=== PATIENT | female | born 1990 | race Caucasian/White ===

== ENCOUNTER 2019-02-10 18:16 | Observation (INO) ==
[2019-02-10 18:57] LABS: Basophils % 0.5 % (0.1-2.0); Eosinophils # 0.5 K/mm3 (0.0-0.4); Eosinophils % 5.8 % (0.1-12.0); Hematocrit 34.9 % (37.0-47.0); Hemoglobin 10.8 g/dL (12.2-16.2); Lymphocytes # 2.1 K/mm3 (0.7-4.5); Lymphocytes % 24.2 % (10-50); Mean Corpuscular HGB Conc 31.1 g/dL (31.8-35.4); Mean Corpuscular Volume 83.1 fl (81-99); Mean Platelet Volume 7.7 fl (7.4-10.4); Monocytes # 0.4 K/mm3 (0.1-1.0); Monocytes % 4.5 % (1.7-9.3); Neutrophils # 5.6 K/mm3 (1.8-7.8); Neutrophils % 65.1 % (37.0-80.0); Platelet Count 422 K/mm3 (142-424); Red Cell Distribution Width 13.6 % (11.5-17.5); White Blood Count 8.5 K/mm3 (4.8-10.8)
--- NOTE | 2019-02-10 18:57 | Emergency Department Note ---
ED Disposition Clinical Impression: Abscess of right thigh Disposition: Admitted as Observation Condition on Discharge: Fair Instructions: DI for Laceration Repair Additional Instructions: Will be admitted by Dr. Moses with clindamycin and vancomycin and a surgical consult to Dr. Solano Referrals: Laney Garcia [Primary Care Provider] - Time of Disposition: 19:04 - Critical Care Critical Care Time: No Attestation: On 02/10/19, the high probability of a clinically significant, sudden or life threatening deterioration of the following system(s) required my full and direct attention, intervention and personal management. The time I documented below is in addition to time spent performing reported procedures but includes the following listed in this critical care notation. Medical Decision Making - Medical Records Medical records reviewed: Yes: I reviewed the patient's medical records. - Bonifacio Inquiry Pt receiving controlled substance: No Bonifacio was queried for this patient: No Vital Signs: 02/10/19 18:30 Temperature 99 F Temperature Source Oral Pulse Rate [Left Radial] 110 H Respiratory Rate 18 Blood Pressure [Right Arm] 154/98 H Blood Pressure Mean [Right Arm] 116 Blood Pressure Position [Right Arm] Sitting 02 Sat by Pulse Oximetry 98 Oxygen Delivery Method Room Air - Lab Data Lab results reviewed: Yes: I reviewed the patient's lab results. Wound/Laceration HPI - General Chief Complaint: Wound/Laceration Stated Complaint: cyst on inner right thigh Time Seen by Provider: 02/10/19 18:49 Mode of Arrival: Ambulatory Limitations: No Limitations Description of Symptoms (Recalled from ER Triage Doc. by RN): TO ED PER PVT CAR WITH C/O ABSCESS TO RT INNER THIGH X SEVERAL DAYS, SEEN IN ED FRIDAY FOR SAME GIVEN ANTIBIOTICS BUT STATES GETTING WORSE. - History of Present Illness HPI narrative: Patient is a 28-year-old white female who comes in with a large abscess on the right inner thigh that is been there since Friday she was seen in the emergency room on Friday and started on some clindamycin p.o. but comes back now because the abscess has gotten much bigger Onset (ago): day(s) Location: other (Right upper thigh) - Related Data Home Medications Medication Instructions Recorded Confirmed Metformin HCl [Metformin HCl ER] 500 mg PO HS 10/19/18 10/19/18 Previous Rx's Medication Instructions Recorded Levothyroxine Sodium [Synthroid 150 mcg PO DAILY #30 tab 10/19/18 150mcg (0.15mg) tablet] Clindamycin HCl [Clindamycin HCl 300 mg PO Q6 7 Days #28 cap 02/07/19 300mg Cap] Allergies Allergy/AdvReac Type Severity Reaction Status Date / Time No Known Allergies Allergy Verified 10/19/18 20:18 [facility] History - Hepatitis A Screen Drug use history?: No High risk sexual behaviors?: No History of sexually transmitted infection?: No Currently employed?: No Childcare worker?: No Do you have indoor plumbing?: Yes Do you have electricity?: Yes Attestation statement:: This patient has been screened for Hepatitis A risk factors. I have reviewed the patient's past medical history: Yes Medical History: Reports:: Cancer (thyroid ca), Diabetes Mellitus Type 2 Denies:: MRSA Amputation: No - Social History Alcohol Intake: never Occupational Status: unemployed Housing: house ROS Obtained: Yes All systems reviewed & no additional complaints - Constitutional Constitutional: Reports system reviewed and no additional complaints, except as docu - Integumentary/Breasts Skin/Breast: Reports system reviewed and no additional complaints, except as docu, Reports as per HPI Physical Exam - General General appearance: alert, in no apparent distress - Head Head exam: atraumatic - Eye Eye exam: Present: normal appearance - ENT ENT exam: Present: normal exam - Neck Neck exam: Present: normal inspection - Chest Chest inspection: Present: normal inspection - Respiratory Respiratory exam: Present: normal lung sounds bilaterally - Cardiovascular Cardiovascular exam: Present: regular rate, normal rhythm - Abdominal Exam Abdominal exam: Present: soft - Extremities Exam Extremities exam: Present: other (Large abscess on right upper thigh that measures approximately 5 cm in width and about 12 to 13 cm in length) - Neurological Exam Neurological exam: Present: alert, oriented X3 - Psychiatric Psychiatric exam: Present: normal affect, normal mood
[2019-02-10 19:06] LABS: Albumin Level 2.8 gm/dL (3.4-5.0); Albumin/Globulin Ratio 0.5 (1.1-1.8); Anion Gap 12.1 mEq/L (5-15); Bilirubin,Total 0.2 mg/dL (0.2-1.0); Calcium 9.1 mg/dL (8.5-10.1); Globulin 5.1 gm/dl (1.3-3.2); Total Protein,Serum 7.9 gm/dL (6.4-8.2)
[2019-02-10 19:22] LABS: Microscopic, Urine URINE MICROSCOPIC (MICROSCOPIC)
[2019-02-10 19:24] LABS: Appearance,Urine CLEAR (Clear); Blood, Urine Negative (Negative); Color,Urine YELLOW (Yellow); Glucose,Urine (UA) Negative (Negative); Ketones,Urine Negative (Negative); Leukocyte Esterase,Urine Negative (Negative); Protein,Urine TRACE (Negative); Specific Gravity, Urine >= 1.030 (1.005-1.030)
[2019-02-10 19:37] LABS: Bacteria,Urine 2+ /lpf; Bilirubin,Urine Negative (Negative); Mucus,Urine Trace /lpf; Squamous Epithelial Cell,Urine 20-50 #/hpf (0-5)
[2019-02-11 06:29] LABS: INR 0.92 (0.9-1.1); Prothrombin Time 9.6 seconds (9.4-11.8)
[2019-02-11 06:35] LABS: Phosphorous 4.2 mg/dL (2.4-4.9)
--- NOTE | 2019-02-11 07:10 | Consult Report ---
*Admission Date: 02/11/19 *Reason for consult:: Abscess *History of present illness: Patient is a 28-year-old nondiabetic female from [place]. She states that she had developed some redness and swelling consistent with a skin abscess in the right medial proximal thigh about 6 days ago. She had presented to the emergency department 4 days ago and was started on oral clindamycin. The area had increased in size and swelling with progressive redness and she presented to the emergency department yesterday evening. It was felt that this required intravenous antibiotics and surgical intervention and she was admitted for inpatient management. Review of Systems - Review of Systems Review of systems:: pertinent systems reviewed and negative unless documented below [facility] History I have reviewed the patient's past medical history: Yes Medical History: Reports:: Cancer (thyroid ca), Diabetes Mellitus Type 2 Denies:: MRSA *Have you ever received a pneumonia vaccine?: No *Have you received a flu vaccine this season?: No (does not want) Other Medical History: Reports: Hypothyroidism, Radiation Therapy, Thyroid Disease (hx of cancer) Laterality Cases: Bilateral: Other Other Surgeries: Yes: , Thyroidectomy, Other (bilateral tube removal) Amputation: No Fractures: No - *Social History Educational Level: Attended High School Smoking Status: Never smoker Alcohol Intake: never *Occupational Status:: unemployed Housing: house Household Members: significant other, family, children *Travel in the last 8 weeks: None Family Hx:: Other Meds Home Medications Medication Instructions Recorded Confirmed Type Levothyroxine Sodium [Synthroid 150 mcg PO DAILY #30 tab 10/19/18 02/10/19 Rx 150mcg (0.15mg) tablet] Metformin HCl [Metformin HCl ER] 500 mg PO HS 10/19/18 02/10/19 History Clindamycin HCl [Clindamycin HCl 300 mg PO Q6 7 Days #28 cap 02/07/19 02/10/19 Rx 300mg Cap] Allergies Allergy/AdvReac Type Severity Reaction Status Date / Time No Known Allergies Allergy Verified 10/19/18 20:18 Exam Vital signs and Labs for Last 24 Hours: Temp Pulse Resp BP Pulse Ox 97.9 F 72 15 109/50 L 97 02/11/19 04:00 02/11/19 04:00 02/11/19 04:00 02/11/19 04:00 02/11/19 04:00 Laboratory Results - last 24 hr 02/10/19 18:46: WBC 8.5, RBC 4.20, Hgb 10.8 L, Hct 34.9 L, MCV 83.1, MCH 25.8 L, MCHC 31.1 L, RDW 13.6, Plt Count 422, MPV 7.7, Neut % (Auto) 65.1, Lymph % (Auto) 24.2, [place] % (Auto) 4.5, Eos % (Auto) 5.8, Baso % (Auto) 0.5, Neut # (Auto) 5.6, Lymph # (Auto) 2.1, [place] # (Auto) 0.4, Eos # (Auto) 0.5 H, Baso # (Auto) 0.0 02/10/19 18:46: Sodium 139, Potassium 3.1 L, Chloride 103, Carbon Dioxide 27, Anion Gap 12.1, BUN 14, Creatinine 0.69, Estimated Creat Clear 145, Estimated GFR 100, Est GFR ( Amer) 121, Glucose 97, Calcium 9.1, Total Bilirubin 0.2, AST 7 L, ALT 13, Alkaline Phosphatase 73, Total Protein 7.9, Albumin 2.8 L, Globulin 5.1 H, Albumin/Globulin Ratio 0.5 L 02/10/19 19:06: Urine Color Yellow, Urine Appearance Clear, Urine pH 6.0, Ur Specific [place] >= 1.030, Urine Protein Trace, Urine Glucose (UA) Negative, Urine Ketones Negative, Urine Blood Negative, Urine Nitrate Negative, Urine Bilirubin Negative, Urine Urobilinogen 1.0, Ur Leukocyte Esterase Negative, Urine RBC 3-5, Urine WBC 5-10, Ur Squamous Epith Cells 20-50, Urine Bacteria 2+, Urine Mucus Trace 02/10/19 20:59: POC Glucose 72 02/11/19 05:46: POC Glucose 83 02/11/19 06:00: PT 9.6, INR 0.92 02/11/19 06:00: Phosphorus 4.2, Magnesium 1.7 I & O for Last 24 hours: Intake & Output 02/08/19 02/09/19 02/10/19 02/11/19 11:59 11:59 11:59 11:59 Intake Total 2741 / 2741 Output Total 200 / 200 Balance 2541 / 2541 Weight 201 lb 2 oz - *Routine HEENT Exam Head: Present: normocephalic Eye: Present: EOMI, PERRL ENT: Present: mucous membranes moist - *Routine Neck Exam Present: supple. Absent: lymphadenopathy - *Routine Respiratory Exam Present: CTA bilaterally - *Routine Cardiovascular Exam Present: RRR - *Routine Abdominal Exam Present: soft, normoactive bowel sounds. Absent: tenderness - *Routine Extremities Exam Absent: cyanosis, clubbing, edema - *Routine Skin Exam Present: warm. Absent: rash Comments: She has an area of swelling with skin edema and erythema in the right medial proximal thigh. Extent is approximately 12 cm. Its tender. There are couple of punctate areas consistent with folliculitis more posterior medially which may be the origin. There is no fluctuance but the area is firm and indurated with erythema. - *Routine Neurological Exam Present: alert, oriented X3 - Detailed Eye Exam Eyelids: Left normal inspection Results - Labs 02/10/19 18:46 02/10/19 18:46 Laboratory Results - last 24 hr 02/10/19 18:46: WBC 8.5, RBC 4.20, Hgb 10.8 L, Hct 34.9 L, MCV 83.1, MCH 25.8 L, MCHC 31.1 L, RDW 13.6, Plt Count 422, MPV 7.7, Neut % (Auto) 65.1, Lymph % (Auto) 24.2, [place] % (Auto) 4.5, Eos % (Auto) 5.8, Baso % (Auto) 0.5, Neut # (Auto) 5.6, Lymph # (Auto) 2.1, [place] # (Auto) 0.4, Eos # (Auto) 0.5 H, Baso # (Auto) 0.0 02/10/19 18:46: Sodium 139, Potassium 3.1 L, Chloride 103, Carbon Dioxide 27, Anion Gap 12.1, BUN 14, Creatinine 0.69, Estimated Creat Clear 145, Estimated GFR 100, Est GFR ( Amer) 121, Glucose 97, Calcium 9.1, Total Bilirubin 0.2, AST 7 L, ALT 13, Alkaline Phosphatase 73, Total Protein 7.9, Albumin 2.8 L, Globulin 5.1 H, Albumin/Globulin Ratio 0.5 L 02/10/19 19:06: Urine Color Yellow, Urine Appearance Clear, Urine pH 6.0, Ur Specific [place] >= 1.030, Urine Protein Trace, Urine Glucose (UA) Negative, Urine Ketones Negative, Urine Blood Negative, Urine Nitrate Negative, Urine Bilirubin Negative, Urine Urobilinogen 1.0, Ur Leukocyte Esterase Negative, Urine RBC 3-5, Urine WBC 5-10, Ur Squamous Epith Cells 20-50, Urine Bacteria 2+, Urine Mucus Trace 02/10/19 20:59: POC Glucose 72 02/11/19 05:46: POC Glucose 83 02/11/19 06:00: PT 9.6, INR 0.92 02/11/19 06:00: Phosphorus 4.2, Magnesium 1.7 Assessment and Plan - Assessment and plan all Dx Assessment and Plan for all problems:: Soft tissue infection with clinical abscess of the right medial proximal thigh. Plan for incision and drainage with debridement.
--- NOTE | 2019-02-11 07:22 | Pharmacy Consult Notes ---
[facility] Pharmacy VTE Monitoring - Patient Demographics Admission date: 02/10/19 Report Date: 02/11/19 Time: 07:22 Allergies/Adverse Reactions: Patient Allergies No Known Allergies Allergy (Verified 10/19/18 20:18) Height: 1.52 m Weight: 91.229 kg Patient Problems: Current Active Problems Abscess of right thigh (Acute) - VTE Risk Labs: VTE Related Lab Results Hgb 10.8 g/dL (12.2-16.2) L 02/10/19 18:46 Hct 34.9 % (37.0-47.0) L 02/10/19 18:46 Plt Count 422 K/mm3 (142-424) 02/10/19 18:46 PT 9.6 seconds (9.4-11.8) 02/11/19 06:00 INR 0.92 (0.9-1.1) 02/11/19 06:00 BUN 14 mg/dL (7-18) 02/10/19 18:46 Creatinine 0.69 mg/dL (0.55-1.02) 02/10/19 18:46 Estimated Creat Clear 145 mL/min (50-200) 02/10/19 18:46 Was VTE Risk Assessment Performed: Yes VTE Score: 1 VTE Risk Level: Very Low Risk - Prophylaxis VTE Prophylaxis Ordered?: Yes Types of VTE Prophylaxis: TEDS Knee High Location of Applied Device: Bilateral Lower Extremeties - VTE Diagnosis Confirmed Treatment or plan recommended: Continue Current Treatment
--- NOTE | 2019-02-11 08:06 | Pharmacy Consult Notes ---
- Pharmacy Consult Date: 02/11/19 Time: 08:05 Referring provider: DR. LUJAN Reason for Consult:: VANCOMYCIN DOSING Allergies and ADEs:: Allergies Allergy/AdvReac Type Severity Reaction Status Date / Time No Known Allergies Allergy Verified 10/19/18 20:18 Home Medications:: Home Medications Medication Instructions Recorded Confirmed Type Levothyroxine Sodium [Synthroid 150 mcg PO DAILY #30 tab 10/19/18 02/10/19 Rx 150mcg (0.15mg) tablet] Clindamycin HCl [Clindamycin HCl 300 mg PO Q6 7 Days #28 cap 02/07/19 02/10/19 Rx 300mg Cap] Fluoxetine HCl [Prozac 20mg 20 mg PO HS 02/11/19 02/11/19 History Capsule] hydrOXYzine HCl [Hydroxyzine HCl] 50 mg PO BIDP PRN 02/11/19 02/11/19 History Height: 1.52 m Weight: 91.229 kg Laboratory Results:: Laboratory Results - last 24 hr 02/10/19 18:46: WBC 8.5, RBC 4.20, Hgb 10.8 L, Hct 34.9 L, MCV 83.1, MCH 25.8 L, MCHC 31.1 L, RDW 13.6, Plt Count 422, MPV 7.7, Neut % (Auto) 65.1, Lymph % (Auto) 24.2, [place] % (Auto) 4.5, Eos % (Auto) 5.8, Baso % (Auto) 0.5, Neut # (Auto) 5.6, Lymph # (Auto) 2.1, [place] # (Auto) 0.4, Eos # (Auto) 0.5 H, Baso # (Auto) 0.0 02/10/19 18:46: Sodium 139, Potassium 3.1 L, Chloride 103, Carbon Dioxide 27, Anion Gap 12.1, BUN 14, Creatinine 0.69, Estimated Creat Clear 145, Estimated GFR 100, Est GFR ( Amer) 121, Glucose 97, Calcium 9.1, Total Bilirubin 0.2, AST 7 L, ALT 13, Alkaline Phosphatase 73, Total Protein 7.9, Albumin 2.8 L, Globulin 5.1 H, Albumin/Globulin Ratio 0.5 L 02/10/19 19:06: Urine Color Yellow, Urine Appearance Clear, Urine pH 6.0, Ur Specific [place] >= 1.030, Urine Protein Trace, Urine Glucose (UA) Negative, Urine Ketones Negative, Urine Blood Negative, Urine Nitrate Negative, Urine Bilirubin Negative, Urine Urobilinogen 1.0, Ur Leukocyte Esterase Negative, Urine RBC 3-5, Urine WBC 5-10, Ur Squamous Epith Cells 20-50, Urine Bacteria 2+, Urine Mucus Trace 02/10/19 20:59: POC Glucose 72 02/11/19 05:46: POC Glucose 83 02/11/19 06:00: PT 9.6, INR 0.92 02/11/19 06:00: Phosphorus 4.2, Magnesium 1.7 02/11/19 07:15: Urine HCG, Qual Negative Medical History: Reports:: Cancer (thyroid ca), Diabetes Mellitus Type 2 Denies:: MRSA Assessment and Plan - Assessment and plan all Dx Assessment and Plan for all problems:: BASED ON PATIENT FACTORS, RECOMMEND VANCOMYCIN 1500 MG IV Q12H. WILL OBTAIN VANCOMYCIN TROUGH LEVEL AND PATIENT FACTORS TOMORROW PRIOR TO 4TH DOSE. PHARMACY WILL FOLLOW DAILY AND ADJUST APPROPRIATE.
--- NOTE | 2019-02-11 08:16 | Operative Note ---
Date of procedure: 02/11/19 Pre-op Diagnosis:: Soft tissue infection of right medial proximal thigh Post-op Diagnosis:: Same Procedure performed:: Incision and drainage of complex deep right thigh abscess with debridement of subcutaneous tissue Surgeon:: Paul Solano MD VIOLIN MECHANIC:: Willie Casanova Anesthesia: LMA Estimated blood loss (mL): 15 Clinical Note:: Patient is a 28-year-old nondiabetic female from [place]. She states that she had developed some redness and swelling consistent with a skin abscess in the right medial proximal thigh about 6 days ago. She had presented to the emergency department 4 days ago and was started on oral clindamycin. The area had increased in size and swelling with progressive redness and she presented to the emergency department yesterday evening. It was felt that this required intravenous antibiotics and surgical intervention and she was admitted for inpatient management. Operative findings:: Deep subcutaneous abscess with minimal necrosis of subcutaneous tissues. Wound size measured approximately 10 cm x 4 cm with approximately 5 cm in depth. There is 5 cm tunneling anteriorly and posteriorly. Operative note:: Patient was taken to the operating room. She was positioned in a supine position. General anesthesia was induced via LMA. She was positioned in somewhat of a frog-leg position to allow access to the area of the soft tissue infection. The area was prepped and draped in the standard surgical fashion. There was more intense induration with some more prominent skin changes somewhat posteriorly. 18-gauge needle was inserted with syringe while aspirating. Bloody purulent material was aspirated. This was then sent for culture. At this site a limited incision was made. Thick bloody pus exuded from the wound. This was suctioned free. The wound was then probed and there was significant abscess pocket. The overlying skin over the abscess pocket was incised with electrocautery so as to unroofed the subcutaneous abscess. There is minimal necrosis of the subcutaneous tissues which was easily bluntly debrided. The wound was open for approximately 10 cm. However, there was tunneling for 5 cm anteriorly and posteriorly. Once the purulence and necrotic tissue was fully evacuated wound was thoroughly irrigated with approximately 3 L of pulsatile saline irrigation using the Pulsavac device. She did have some persistent induration adjacent to the incision but no evidence of any undrained purulence or necrosis. Hemostasis was achieved with electrocautery. Local anesthetic was infiltrated. The wound was packed with a moistened saline Kerlix gauze and covered with clean dry sterile dressing. Condition: stable Disposition: PACU Specimens:: Cultures Complications:: None immediately apparent
--- NOTE | 2019-02-11 08:21 | Progress Note ---
[facility] Anesthesia Record Part I Intake, IV Amount: 500 Estimated blood loss (mL): 20 Urine output (mL): 0 Blood Products used (#): none Blood Pressure: 138/83 SaO2: 96 Pulse Rate: 98 Respiratory Rate: 15 Temperature: 97.5 F Patient is:: Awake, Drowsy, Stable Stable to PACU at:: 08:16
--- NOTE | 2019-02-11 08:21 | Progress Note ---
[facility] Anesthesia Checklist - Patient Identification Patient Identification: Arm Band, Verbal (Name & ) - Structural Data Admitted From: Home Planned Operative Procedure/s: Right thich abscess I&D Consent for Planned Operative Procedure(s) Verified: Yes Verified Documents: Surgical Consent, History and Physical - NPO Status Verified Time NPO: 00:00 - Chart Verification Results Verified: CBC, BMP, PT, PTT, INR, HCG - Additional verifications Patient : No Anesthesia Reactions: No - Airway Assessment C-Spine Mobility Assessed: Yes TMJ Mobility Assessed: Yes Dentition: Good Dentition - Neurological Assessment Level of Consciousness: Awake, Alert, Appropriate, Follows Commands Hx Seizures: No Numbness or tingling in extremities: No - Anesthesia Plan Anesthesia Risk discussed: Yes Anesthesia Plan: Verified ASA Class: III (Emergent) Anesthesia Type: General [facility] History I have reviewed the patient's past medical history: Yes Medical History: Reports:: Cancer (thyroid ca), Depression, Diabetes Mellitus Type 2 Denies:: MRSA *Have you ever received a pneumonia vaccine?: No *Have you received a flu vaccine this season?: No (does not want) Other Medical History: Reports: Hypothyroidism, Radiation Therapy, Thyroid Dise ase (hx of cancer) Comment:: morbid obesity Anesthesia experience/problems:: None Laterality Cases: Bilateral: Other Other Surgeries: Yes: , Thyroidectomy, Other (bilateral tube removal) Amputation: No Fractures: No - *Social History Educational Level: Attended High School Smoking Status: Never smoker Alcohol Intake: never Substance Use Type: denies use *Occupational Status:: unemployed Housing: house Household Members: significant other, family, children *Travel in the last 8 weeks: None Family Hx:: Other
--- NOTE | 2019-02-11 08:22 | Progress Note ---
[facility] Anesthesia Record Part II Discharge Time: 08:46 Destination: Medical Surgical Department PACU nurse assessment reviewed?: Yes Patient Condition:: Good Anesthesia Complications:: None Swallowing reflex intact?: Yes Cyanosis?: No
--- NOTE | 2019-02-11 13:42 | History & Physical Report ---
*Admission Date: 02/10/19 *Chief complaint: Abscess in groin *History of present illness: Ms. Aguayo is a pleasant 28-year-old female from [place], [place] who presents with failure of outpatient treatment for a right groin abscess. She states that she had developed some redness and swelling consistent with a skin abscess in the right medial proximal thigh about 6 days ago. She says it started like a small pimple similar to ingrown hairs that she has had before. She went to the ER earlier this week and was started on oral clindamycin. The area unfortunately increased in size, had worsening swelling and pain. Came to the ER due to worsening symptoms. She was admitted to medicine for further management with IV antibiotics and surgery was consulted. I&D was performed this morning. On interview, patient was tired but in minimal discomfort. Had no other complaints on exam. Denied chest pain, shortness of breath, history of recurring skin infections, diarrhea, nausea, vomiting. [facility] History I have reviewed the patient's past medical history: Yes Medical History: Reports:: Cancer (thyroid ca), Depression, Diabetes Mellitus Type 2 Denies:: MRSA, Seizures *Have you ever received a pneumonia vaccine?: No *Have you received a flu vaccine this season?: No (does not want) Other Medical History: Reports: Hypothyroidism, Radiation Therapy, Thyroid Disease (hx of cancer) Anesthesia experience/problems:: None Laterality Cases: Bilateral: Other Other Surgeries: Yes: , Thyroidectomy, Other (bilateral tube removal) Amputation: No Fractures: No - *Social History Educational Level: Attended High School Smoking Status: Never smoker Alcohol Intake: never Substance Use Type: denies use *Occupational Status:: unemployed Housing: house Household Members: significant other, family, children *Travel in the last 8 weeks: None - Psychiatric History Pschychiatric History:: Reports:: Depression Family Hx:: Other Review of Systems - Review of Systems Review of systems:: pertinent systems reviewed and negative unless documented below Meds Home Medications Medication Instructions Recorded Confirmed Type Levothyroxine Sodium [Synthroid 150 mcg PO DAILY #30 tab 10/19/18 02/10/19 Rx 150mcg (0.15mg) tablet] Clindamycin HCl [Clindamycin HCl 300 mg PO Q6 7 Days #28 cap 02/07/19 02/10/19 Rx 300mg Cap] Fluoxetine HCl [Prozac 20mg 20 mg PO HS 02/11/19 02/11/19 History Capsule] hydrOXYzine HCl [Hydroxyzine HCl] 50 mg PO BIDP PRN 02/11/19 02/11/19 History Allergies Allergy/AdvReac Type Severity Reaction Status Date / Time No Known Allergies Allergy Verified 10/19/18 20:18 Exam Vital signs and Labs for Last 24 Hours: Temp Pulse Resp BP Pulse Ox 97.8 F 70 16 118/73 93 L 02/11/19 11:45 02/11/19 11:45 02/11/19 10:45 02/11/19 11:45 02/11/19 11:45 Laboratory Results - last 24 hr 02/10/19 18:46: WBC 8.5, RBC 4.20, Hgb 10.8 L, Hct 34.9 L, MCV 83.1, MCH 25.8 L, MCHC 31.1 L, RDW 13.6, Plt Count 422, MPV 7.7, Neut % (Auto) 65.1, Lymph % (Auto) 24.2, [place] % (Auto) 4.5, Eos % (Auto) 5.8, Baso % (Auto) 0.5, Neut # (Auto) 5.6, Lymph # (Auto) 2.1, [place] # (Auto) 0.4, Eos # (Auto) 0.5 H, Baso # (Auto) 0.0 02/10/19 18:46: Sodium 139, Potassium 3.1 L, Chloride 103, Carbon Dioxide 27, Anion Gap 12.1, BUN 14, Creatinine 0.69, Estimated Creat Clear 145, Estimated GFR 100, Est GFR ( Amer) 121, Glucose 97, Calcium 9.1, Total Bilirubin 0.2, AST 7 L, ALT 13, Alkaline Phosphatase 73, Total Protein 7.9, Albumin 2.8 L, Globulin 5.1 H, Albumin/Globulin Ratio 0.5 L 02/10/19 19:06: Urine Color Yellow, Urine Appearance Clear, Urine pH 6.0, Ur Specific [place] >= 1.030, Urine Protein Trace, Urine Glucose (UA) Negative, Urine Ketones Negative, Urine Blood Negative, Urine Nitrate Negative, Urine Bilirubin Negative, Urine Urobilinogen 1.0, Ur Leukocyte Esterase Negative, Urine RBC 3-5, Urine WBC 5-10, Ur Squamous Epith Cells 20-50, Urine Bacteria 2+, Urine Mucus Trace 02/10/19 20:59: POC Glucose 72 02/11/19 05:46: POC Glucose 83 02/11/19 06:00: PT 9.6, INR 0.92 02/11/19 06:00: Phosphorus 4.2, Magnesium 1.7 02/11/19 07:15: Urine HCG, Qual Negative 02/11/19 11:41: POC Glucose 127 H I & O for Last 24 hours: Intake & Output 02/08/19 02/09/19 02/10/19 02/11/19 23:59 23:59 23:59 23:59 Intake Total 1100 / 1220 2761 / 2761 Output Total 200 / 200 Balance 1100 / 1220 2561 / 2561 Weight 89.471 kg 91.229 kg - Constitutional no acute distress, obese - *Routine HEENT Exam Head: Present: normocephalic Eye: Present: EOMI, PERRL ENT: Present: mucous membranes moist - *Routine Neck Exam Present: supple. Absent: lymphadenopathy - *Routine Respiratory Exam Present: CTA bilaterally - *Routine Cardiovascular Exam Present: RRR - *Routine Abdominal Exam Present: soft, normoactive bowel sounds. Absent: tenderness - *Routine Exam Patient deferred: groin exam (I&D of right groin examined with surrounding erythema and induration, mild tenderness to palpation. Clean packing in place. No bleeding.) - *Routine Extremities Exam Absent: cyanosis, clubbing, edema - *Routine Skin Exam Present: warm. Absent: rash - *Routine Neurological Exam Present: alert, oriented X3 Assessment and Plan (1) Abscess of right thigh Current visit: Yes Status: Acute Category: Medical Code(s): L02.415 - Cutaneous abscess of right lower limb Status post I&D. Continue broad-spectrum IV antibiotics. Cultures pending. Assess for response over the coming 24 to 48 hours. If improves, will transition to oral therapy to complete 10 to 14 days of antibiotics. Wound dressings per nursing (2) Hypothyroidism Current visit: No Status: Chronic Qualifiers: Hypothyroidism type: postoperative Qualified Code(s): E89.0 - Postproce dural hypothyroidism Category: Medical Code(s): E03.9 - Hypothyroidism, unspecified Continue home levothyroxine (3) Hypokalemia Current visit: Yes Status: Acute Category: Medical Code(s): E87.6 - Hypokalemia Place as needed. Repeat labs in the morning
--- NOTE | 2019-02-12 08:01 | Progress Note ---
Subjective Narrative: Patient had nausea since yesterday with some vomiting this morning. Had pain with dressing change this morning. Exam Vital signs and Labs for Last 24 Hours: Temp Pulse Resp BP Pulse Ox 98.6 F 87 15 137/71 96 02/12/19 05:33 02/12/19 05:33 02/12/19 05:33 02/12/19 05:33 02/12/19 05:33 Laboratory Results - last 24 hr 02/11/19 11:41: POC Glucose 127 H I & O for Last 24 hours: Intake & Output 02/09/19 02/10/19 02/11/19 02/12/19 11:59 11:59 11:59 11:59 Intake Total 3241 / 3241 2215 / 2215 Output Total 200 / 200 775 / 775 Balance 3041 / 3041 1440 / 1440 Weight 201 lb 2 oz 203 lb 6 oz Microbiology Reports for the Last 24 Hours: Microbiology 02/10/19 19:06 Urine,Clean Catch Urine Culture - Preliminary NO GROWTH AFTER 24 HOURS 02/11/19 07:49 Thigh - Right Gram Stain - Final - *Routine Skin Exam Comments: Cellulitis markedly improved. Still with some induration. Progress Note: A&P (1) Abscess of right thigh Status: Acute Current Visit: Yes (2) Hypothyroidism Status: Chronic Current Visit: No (3) Hypokalemia Status: Acute Current Visit: Yes Assessment and Plan for All Diagnoses:: Cultures pending, gram stain reveals gram positive cocci. Continue wound care.
--- NOTE | 2019-02-12 08:20 | Progress Note ---
Internal Medicine - PN: Subj *Date: 02/12/19 *Time: 08:16 Interval history: Patient had a rough time overnight with dressing change. Had extreme pain. Required additional pain meds consisting of Dilaudid x1. Tolerating intermittent p.o. intake however had some nausea and vomiting this morning. Hemodynamically stable, afebrile. Ambulating independently. Denies any chest pain, shortness of breath, diarrhea. Does complain of nausea and vomiting. Exam Vital signs and Labs for Last 24 Hours: Temp Pulse Resp BP Pulse Ox 98.3 F 71 19 129/78 97 02/12/19 08:00 02/12/19 08:00 02/12/19 08:00 02/12/19 08:00 02/12/19 08:00 Laboratory Results - last 24 hr 02/11/19 11:41: POC Glucose 127 H I & O for Last 24 hours: Intake & Output 02/09/19 02/10/19 02/11/19 02/12/19 23:59 23:59 23:59 23:59 Intake Total 1100 / 1220 4081 / 4081 275 / 275 Output Total 575 / 575 400 / 400 Balance 1100 / 1220 3506 / 3506 -125 / -125 Weight 89.471 kg 91.229 kg 92.249 kg Microbiology Reports for the Last 24 Hours: Microbiology 02/10/19 19:06 Urine,Clean Catch Urine Culture - Preliminary NO GROWTH AFTER 24 HOURS 02/11/19 07:49 Thigh - Right Gram Stain - Final Narrative: - Constitutional no acute distress, obese - *Routine HEENT Exam Head: Present: normocephalic Eye: Present: EOMI, PERRL ENT: Present: mucous membranes moist - *Routine Neck Exam Present: supple. Absent: lymphadenopathy - *Routine Respiratory Exam Present: CTA bilaterally - *Routine Cardiovascular Exam Present: RRR - *Routine Abdominal Exam Present: soft, normoactive bowel sounds. Absent: tenderness - *Routine Extremities Exam Absent: cyanosis, clubbing, edema - *Routine Skin Exam Present: warm. Absent: rash - *Routine Neurological Exam Present: alert, oriented X3 Assessment and Plan (1) Abscess of right thigh Current visit: Yes Status: Acute Category: Medical Code(s): L02.415 - Cutaneous abscess of right lower limb (2) Hypothyroidism Current visit: No Status: Chronic Qualifiers: Hypothyroidism type: postoperative Qualified Code(s): E89.0 - Postprocedural hypothyroidism Category: Medical Code(s): E03.9 - Hypothyroidism, unspecified (3) Hypokalemia Current visit: Yes Status: Acute Category: Medical Code(s): E87.6 - Hypokalemia (4) Anxiety Current visit: Yes Status: Chronic Category: Medical Code(s): F41.9 - Anxiety disorder, unspecified Resume patient's home Prozac. Initiate Vistaril. (5) Class 2 obesity Current visit: Yes Status: Chronic Category: Medical Code(s): E66.9 - Obesity, unspecified Complicates all aspects of her care - Assessment and plan all Dx Assessment and Plan for all problems:: 1-year-old female with history of thyroid cancer status post ablation with abscess in right groin. Tolerating IV antibiotics. Remains afebrile. Continue with dressing changes twice daily. Will monitor for required pain treatment regimen over the next 24 hours in anticipation of going home over the weekend. De-escalate to oral antibiotics pending cultures and clinical response. Resumed home medications for chronic conditions. Continues to require inpatient management.
[2019-02-12 09:03] LABS: Anion Gap 10.2 mEq/L (5-15); Calcium 8.3 mg/dL (8.5-10.1)
--- NOTE | 2019-02-12 10:41 | Pharmacy Consult Notes ---
- Pharmacy Consult Date: 02/12/19 Time: 10:40 Referring provider: DR. LUJAN Reason for Consult:: VANCOMYCIN TROUGH LEVEL Allergies and ADEs:: Allergies Allergy/AdvReac Type Severity Reaction Status Date / Time No Known Allergies Allergy Verified 10/19/18 20:18 Home Medications:: Home Medications Medication Instructions Recorded Confirmed Type Levothyroxine Sodium [Synthroid 150 mcg PO DAILY #30 tab 10/19/18 02/10/19 Rx 150mcg (0.15mg) tablet] Clindamycin HCl [Clindamycin HCl 300 mg PO Q6 7 Days #28 cap 02/07/19 02/10/19 Rx 300mg Cap] Fluoxetine HCl [Prozac 20mg 20 mg PO HS 02/11/19 02/11/19 History Capsule] hydrOXYzine HCl [Hydroxyzine HCl] 50 mg PO BIDP PRN 02/11/19 02/11/19 History Height: 1.52 m Weight: 92.249 kg Laboratory Results:: Laboratory Results - last 24 hr 02/11/19 11:41: POC Glucose 127 H 02/12/19 08:40: Vancomycin Trough 11.3 02/12/19 08:40: Sodium 141, Potassium 3.2 L, Chloride 107, Carbon Dioxide 27, Anion Gap 10.2, BUN 10 D, Creatinine 0.58, Estimated Creat Clear 207, Estimated GFR 122, Est GFR ( Amer) 148 D, Glucose 85, Calcium 8.3 L Medical History: Reports:: Cancer (thyroid ca), Depression, Diabetes Mellitus Type 2 Denies:: MRSA, Seizures Assessment and Plan (1) Abscess of right thigh Current visit: Yes Status: Acute Category: Medical Code(s): L02.415 - Cutaneous abscess of right lower limb (2) Hypothyroidism Current visit: No Status: Chronic Qualifiers: Hypothyroidism type: postoperative Qualified Code(s): E89.0 - Postpr ocedural hypothyroidism Category: Medical Code(s): E03.9 - Hypothyroidism, unspecified (3) Hypokalemia Current visit: Yes Status: Acute Category: Medical Code(s): E87.6 - Hypokalemia (4) Anxiety Current visit: Yes Status: Chronic Category: Medical Code(s): F41.9 - Anxiety disorder, unspecified (5) Class 2 obesity Current visit: Yes Status: Chronic Category: Medical Code(s): E66.9 - Obesity, unspecified - Assessment and plan all Dx Assessment and Plan for all problems:: BASED ON VANCOMYCIN TROUGH LEVEL AND PATIENT FACTORS, RECOMMEND CONTINUING VANCOMYCIN 1500 MG IV Q12H. PHARMACY WILL CONTINUE TO MONITOR DAILY AND ADJUST APPROPRIATE.
[2019-02-13 06:42] LABS: Calcium 7.9 mg/dL (8.5-10.1)
[2019-02-13 07:07] LABS: Basophils # 0.1 K/mm3 (0-0.2); Eosinophils # 0.2 K/mm3 (0.0-0.4); Hematocrit 30.3 % (37.0-47.0); Hemoglobin 9.1 g/dL (12.2-16.2); Lymphocytes # 2.4 K/mm3 (0.7-4.5); Lymphocytes % 33.7 % (10-50); Mean Corpuscular HGB Conc 30.1 g/dL (31.8-35.4); Mean Corpuscular Volume 85.7 fl (81-99); Mean Platelet Volume 7.8 fl (7.4-10.4); Monocytes # 0.4 K/mm3 (0.1-1.0); Monocytes % 5.9 % (1.7-9.3); Neutrophils # 4.1 K/mm3 (1.8-7.8); Neutrophils % 56.4 % (37.0-80.0); Platelet Count 386 K/mm3 (142-424); Red Blood Count 3.54 M/mm3 (4.20-5.40); Red Cell Distribution Width 14.2 % (11.5-17.5); White Blood Count 7.2 K/mm3 (4.8-10.8)
--- NOTE | 2019-02-13 08:20 | Discharge Summary ---
General - General Admission date:: 02/10/19 Discharge date: 02/13/19 HPI HPI: Ms. Aguayo is a pleasant 28-year-old female from [place], [place] who presents with failure of outpatient treatment for a right groin abscess. She states that she had developed some redness and swelling consistent with a skin abscess in the right medial proximal thigh about 6 days ago. She says it started like a small pimple similar to ingrown hairs that she has had before. She went to the ER earlier this week and was started on oral clindamycin. The area unfortunately increased in size, had worsening swelling and pain. Came to the ER due to worsening symptoms. She was admitted to medicine for further management with IV antibiotics and surgery was consulted. I&D was performed this morning. On interview, patient was tired but in minimal discomfort. Had no other complaints on exam. Denied chest pain, shortness of breath, history of recurring skin infections, diarrhea, nausea, vomiting. Hospital Course Hospital Course: Patient was admitted, placed on intravenous clindamycin and vancomycin. Tolerated this regimen well. Taken to the OR the next day by surgery-please see consult note and operative note for these details. Successfully debrided. Cultures were taken. Tolerated the procedure well and continued on IV antibiotics. Cultures grew Staphylococcus aureus, methicillin sensitive. Patient tolerated antibiotics well. Tolerated dressing changes well with decreasing pain medication requirement. This morning she is doing well, eating well, no fevers. She will be discharged home with Bactrim in addition to p.o. clindamycin that was previously prescribed as well as minimal pain medication for dressing changes. Her mother's been instructed on dressing changes twice daily. She will follow-up with general surgery for wound care checkup next week. Objective Vital signs: Temp Pulse Resp BP Pulse Ox 98.4 F 70 17 119/79 98 02/13/19 07:22 02/13/19 07:22 02/13/19 07:22 02/13/19 07:22 02/13/19 07:39 Narrative: Patient is pleasant, talkative, awake. Oriented x3. Oropharynx clear. Lungs clear. Heart rate regular without murmurs. Abdomen soft nontender. Neurologic exam nonfocal, moves all extremities, cranial nerves without deficit. Wound in the right upper thigh has dressing packed into the wound. The edges are pink, clean and dry. The packing itself is clean and dry. Results Labs on day of discharge: Labs from last 24 hours 02/13/19 02/13/19 02/12/19 06:19 06:19 08:40 WBC 7.2 RBC 3.54 L Hgb 9.1 L Hct 30.3 L MCV 85.7 MCH 25.8 L MCHC 30.1 L RDW 14.2 Plt Count 386 MPV 7.8 Neut % (Auto) 56.4 Lymph % (Auto) 33.7 [place] % (Auto) 5.9 Eos % (Auto) 3.0 Baso % (Auto) 1.0 Neut # (Auto) 4.1 Lymph # (Auto) 2.4 [place] # (Auto) 0.4 Eos # (Auto) 0.2 Baso # (Auto) 0.1 Sodium 139 141 Potassium 4.0 D 3.2 L Chloride 107 107 Carbon Dioxide 29 27 Anion Gap 7.0 10.2 BUN 7 D 10 D Creatinine 0.54 L 0.58 Estimated Creat Clear 103 207 Estimated GFR 132 122 Est GFR ( Amer) 159 148 D Glucose 80 85 Calcium 7.9 L 8.3 L Vancomycin Trough 02/12/19 08:40 WBC RBC Hgb Hct MCV MCH MCHC RDW Plt Count MPV Neut % (Auto) Lymph % (Auto) [place] % (Auto) Eos % (Auto) Baso % (Auto) Neut # (Auto) Lymph # (Auto) [place] # (Auto) Eos # (Auto) Baso # (Auto) Sodium Potassium Chloride Carbon Dioxide Anion Gap BUN Creatinine Estimated Creat Clear Estimated GFR Est GFR ( Amer) Glucose Calcium Vancomycin Trough 11.3 Preliminary micro results at discharge 02/10/19 19:52 Blood Culture - Preliminary Blood NO GROWTH AFTER 48 HOURS 02/10/19 19:47 Blood Culture - Preliminary Blood NO GROWTH AFTER 48 HOURS DS: Diagnosis - Discharge Diagnosis (1) Abscess of right thigh Status: Acute (2) Hypothyroidism Status: Chronic (3) Hypokalemia Status: Resolved (4) Anxiety Status: Chronic (5) Class 2 obesity Status: Chronic Discharge Plan - Patient Discharge Instructions ACTIVITY: Continue current activity DIET: continue same diet Patient Instructions: DI for Cellulitis -- Adult, Methicillin-Resistant Staph Infection, DI for Surgical Site Infection, DI for Skin Abscess - Follow up Plan Follow up with: Paul Solano MD [Staff Physician] - 1 week Disposition: Home, Self-Shelter Medications: Home Medications Medication Instructions Recorded Confirmed Type Levothyroxine Sodium [Synthroid 150 mcg PO DAILY #30 tab 10/19/18 02/10/19 Rx 150mcg (0.15mg) tablet] Clindamycin HCl [Clindamycin HCl 300 mg PO Q6 7 Days #28 cap 02/07/19 02/10/19 R x 300mg Cap] Fluoxetine HCl [Prozac 20mg 20 mg PO HS 02/11/19 02/11/19 History Capsule] hydrOXYzine HCl [Hydroxyzine HCl] 50 mg PO BIDP PRN 02/11/19 02/11/19 History Acetaminophen with Codeine 1 - 2 tab PO BIDP PRN #10 tab 02/13/19 Rx [Tylenol with Codeine #3 tablet] Sulfamethoxazole/Trimethoprim 1 each PO BID #14 tab 02/13/19 Rx [Bactrim DS tablet] Prescriptions/Medication Reconciliation: New Acetaminophen with Codeine [Tylenol with Codeine #3 tablet] 1 - 2 tab PO BIDP PRN #10 tab PRN Reason: Moderate To Severe Pain Sulfamethoxazole/Trimethoprim [Bactrim DS tablet] 1 each PO BID #14 tab Continued Levothyroxine Sodium [Synthroid 150mcg (0.15mg) tablet] 150 mcg PO DAILY #30 tab hydrOXYzine HCl [Hydroxyzine HCl] 50 mg PO BIDP PRN PRN Reason: Anxiety Clindamycin HCl [Clindamycin HCl 300mg Cap] 300 mg PO Q6 7 Days #28 cap Fluoxetine HCl [Prozac 20mg Capsule] 20 mg PO HS - Problem Reconciliation Problems Reviewed?: Yes
--- NOTE | 2019-02-13 09:36 | Progress Note ---
Subjective Narrative: Patient doing much better. Nausea resolved. Tolerating a diet. Less discomfort with dressing changes. Family has been instructed on twice daily dressing changes. Exam Vital signs and Labs for Last 24 Hours: Temp Pulse Resp BP Pulse Ox 98.4 F 70 17 119/79 98 02/13/19 07:22 02/13/19 07:22 02/13/19 07:22 02/13/19 07:22 02/13/19 07:39 Laboratory Results - last 24 hr 02/13/19 06:19: WBC 7.2, RBC 3.54 L, Hgb 9.1 L, Hct 30.3 L, MCV 85.7, MCH 25.8 L , MCHC 30.1 L, RDW 14.2, Plt Count 386, MPV 7.8, Neut % (Auto) 56.4, Lymph % (Auto) 33.7, [place] % (Auto) 5.9, Eos % (Auto) 3.0, Baso % (Auto) 1.0, Neut # (Auto) 4.1, Lymph # (Auto) 2.4, [place] # (Auto) 0.4, Eos # (Auto) 0.2, Baso # (Auto) 0.1 02/13/19 06:19: Sodium 139, Potassium 4.0 D, Chloride 107, Carbon Dioxide 29, Anion Gap 7.0, BUN 7 D, Creatinine 0.54 L, Estimated Creat Clear 103, Estimated GFR 132, Est GFR ( Amer) 159, Glucose 80, Calcium 7.9 L I & O for Last 24 hours: Intake & Output 02/10/19 02/11/19 02/12/19 02/13/19 11:59 11:59 11:59 11:59 Intake Total 3241 / 3241 2215 / 2215 1080 / 1080 Output Total 200 / 200 775 / 775 1200 / 1200 Balance 3041 / 3041 1440 / 1440 -120 / -120 Weight 201 lb 2 oz 203 lb 6 oz 210 lb 8 oz Microbiology Reports for the Last 24 Hours: Microbiology 02/11/19 07:49 Thigh - Right Gram Stain - Final 02/11/19 07:49 Thigh - Right Abscess Culture - Final Staphylococcus aureus 02/10/19 19:52 Blood Blood Culture - Preliminary NO GROWTH AFTER 48 HOURS 02/10/19 19:47 Blood Blood Culture - Preliminary NO GROWTH AFTER 48 HOURS 02/10/19 19:06 Urine,Clean Catch Urine Culture - Final Multiple organisms, suggests contamination. - *Routine Skin Exam Comments: Erythema markedly improved. Wound is clean. Some induration at the edges. Wound is clean with no evidence of any necrosis. Some tunneling posteriorly. Progress Note: A&P (1) Abscess of right thigh Status: Acute Assessment and plan: Plan is for discharge today with outpatient dressing changes. Family has been instructed. Oral Bactrim. Tylenol No. 3 for pain. Will see in office next w [id number]. Current Visit: Yes (2) Hypothyroidism Status: Chronic Current Visit: No (3) Hypokalemia Status: Resolved Current Visit: Yes (4) Anxiety Status: Chronic Current Visit: Yes (5) Class 2 obesity Status: Chronic Current Visit: Yes
== END 2019-02-13 11:11 | disposition home or self-care (01) ==
LOC: 2ND 18:16 → ER 18:16 → 2ND 20:30
PROVIDERS: ADMIT Internal Medicine Adolescent Medicine; ATTEND Internal Medicine Adolescent Medicine
CPT/HCPCS: 36415; 71020; 71046; 80048; 80053; 80202; 81001; 81025; 82962; 83735; 84100; 85025; 85610; 87040; 87070; 87075; 87077; 87086; 87186; 87205; 96365; 96367; 99281; G0378; J2405; J3370

== ENCOUNTER 2021-10-15 17:24 | Emergency (ER) | payer OTHER, SELFPAY ==
--- NOTE | 2021-10-15 18:24 | XR_ITS ---
PROCEDURE INFORMATION: Exam: XR Left Shoulder Exam date and time: 10/15/2021 6:25 PM Age: 31 years old Clinical indication: Injury or trauma; Work related; Wound; Arm, upper; Injury details: PT states that she got concrete burn at work and noticed a bump on the inside of her left humerus on Friday. ; Additional info: Spot TECHNIQUE: Imaging protocol: Radiologic exam of the Left shoulder. Views: 2 or more views. COMPARISON: CR XR CHEST 2V 02/10/2019 7:24 PM FINDINGS: Bones/joints: No acute fracture or dislocation. Soft tissues: Normal. IMPRESSION: No acute fracture or dislocation.
--- NOTE | 2021-10-15 18:24 | XR_ITS ---
PROCEDURE INFORMATION: Exam: XR Left Humerus Exam date and time: 10/15/2021 6:29 PM Age: 31 years old Clinical indication: Injury or trauma; Work related; Wound; Arm, upper; Injury details: PT states that she got concrete burn at work and noticed a bump on the inside of her left humerus on Friday. ; Additional info: Spot TECHNIQUE: Imaging protocol: Radiologic exam of the Left humerus. Views: 2 or more views. COMPARISON: CR Shoulder L 10/15/2021 6:25 PM FINDINGS: Bones/joints: No acute fracture or dislocation. Soft tissues: Normal. IMPRESSION: No acute fracture or dislocation.
[2021-10-15 18:28] VITALS: BP 150/91; PULSE 85; RESP 18; TEMP 36.7; O2SAT 100; BMI 33.1
--- NOTE | 2021-10-15 18:42 | HMH.EDUTC ---
[facility] [place] Disposition Clinical Impression: Left arm cellulitis Disposition: Home, Self-Care Condition on Discharge: Good Instructions: Cellulitis Additional Instructions: Keep the affected area clean and dry. Follow up with your regular doctor. Take the antibiotics as directed and apply the topical antibiotics as directed. Apply warm wet compresses to the affected area three or four times per day. GO TO THE ER FOR ANY WORSENING SYMPTOMS Prescriptions: Sulfamethoxazole/Trimethoprim [Bactrim DS tablet] 1 each PO BID 10 Days #20 tab Transmission Status: Received by [facility] Mupirocin [Bactroban 2% Ointment 22gm tube] 1 applicatio TP TID 7 Days #1 gm Transmission Status: Received by [facility] cephALEXin [cephALEXin 500mg capsule] 500 mg PO Q6H 10 Days #40 cap Transmission Status: Received by [facility] Referrals: Laney Garcia [Primary Care Provider] - Forms: Work/School Release Time of Disposition: 19:08 Medical Decision Making - Medical Records Medical records reviewed: No: I reviewed the patient's medical records. - Bonifacio Inquiry Pt receiving controlled substance: No Vital Signs: 10/15/21 18:28 10/15/21 19:14 Temperature 98.0 F 98.0 F Temperature Source Oral Pulse Rate 85 Pulse Rate [Left] 85 Respiratory Rate 18 18 Blood Pressure 150/91 H Blood Pressure [Right Arm] 150/91 H Blood Pressure Mean [Right Arm] 110 02 Sat by Pulse Oximetry 100 Orders (Tests/Meds): ED MEDICATIONS Discontinued Medications Generic Name Dose Route Start Last Admin Trade Name Freq PRN Reason Stop Dose Admin Ceftriaxone Sodium 1 gm 10/15/21 18:53 10/15/21 19:02 Ceftriaxone 1gm Vial IM 10/15/21 18:54 1 gm ONCE ONE Administration Lidocaine HCl 0 ml 10/15/21 18:53 10/15/21 19:02 Lidocaine 1% 5ml Pf Vial IM 10/15/21 18:54 2 ml ONCE ONE Administration ORDERS Category Date Time Status Wound Culture and Gram Stain Stat Micro 10/15/21 19:02 Results [facility] [place] HPI - General Stated complaint: Rash on L arm Time Seen by Provider: 10/15/21 18:43 Description of Symptoms (Recalled from Triage Doc. by RN): patient comes in with possible concrete in wound. patient has large red swollen bump on top of left forearm. patient had a concrete burn that occured at work last week HEENT Symptoms (Recalled from RN notes): No Resp Symptoms (Recalled from RN notes): No Skin Symptoms (Recalled from RN notes): Yes MS Symptoms (Recalled from RN notes): No Functional Status (Recalled from RN notes): wnl - History of Present Illness Provider Complaint: She states that she has a red painful area on the underside of her left arm. This began about 5 days ago after she got wet concrete on her skin there. Now there is swellling, warmth and a small open area in its center that has had some clear yellowish drainage. She denies any fever or chills. She is not diabetic. - Related Data Home Medications Medication Instructions Recorded Confirmed Fluoxetine HCl [Prozac 20mg 20 mg PO HS 02/11/19 03/22/19 Capsule] hydrOXYzine HCL [Hydroxyzine HCl] 50 mg PO BIDP PRN 02/11/19 03/22/19 Previous Rx's Medication Instructions Recorded Levothyroxine Sodium [Synthroid 150 mcg PO DAILY #30 tab 10/19/18 150mcg (0.15mg) tablet] Acetaminophen with Codeine 1 - 2 tab PO BIDP PRN #10 tab 02/13/19 [Tylenol with Codeine #3 tablet] clindamycin HCl 300 mg capsule 300 mg PO Q6 3 Days #28 cap 02/19/19 sulfamethoxazole 800 1 tab PO BID 3 Days #6 tab 02/19/19 mg-trimethoprim 160 mg tablet Mupirocin [Bactroban 2% Ointment 1 applicatio TP TID 7 Days #1 gm 10/15/21 22gm tube] Sulfamethoxazole/Trimethoprim 1 each PO BID 10 Days #20 tab 10/15/21 [Bactrim DS tablet] cephALEXin [cephALEXin 500mg 500 mg PO Q6H 10 Days #40 cap 10/15/21 capsule] Allergies Allergy/AdvReac Type Severity Reaction Status Date / Time No Known Allergies Allergy Verified 10/15
[2021-10-15 19:14] VITALS: BP 150/91; PULSE 85; RESP 18; TEMP 36.7
== END 2021-10-15 19:15 | disposition home or self-care (01) ==
PROVIDERS: Emergency Provider Nurse Practitioner Family; PCP Nurse Practitioner Family
DX: L03.114 Cellulitis of left upper limb (principal)
CPT/HCPCS: 73030; 73060; 87070; 87205; 96372; 99212; G0463; J0696

== ENCOUNTER → 2023-01-01 15:38 | Outpatient (CLI) | payer OTHER, SELFPAY ==
[2023-01-01 16:58] LABS: Basophils # 0.1 K/mm3 (0-0.2); Basophils % 0.8 % (0.1-2.0); Eosinophils # 0.5 K/mm3 (0.0-0.4); Eosinophils % 4.9 % (0.1-12.0); Hematocrit 37.6 % (37.0-47.0); Hemoglobin 11.9 g/dL (12.2-16.2); Lymphocytes # 3.8 K/mm3 (0.7-4.5); Lymphocytes % 39.3 % (10-50); Mean Corpuscular HGB Conc 31.5 g/dL (31.8-35.4); Mean Corpuscular Hemoglobin 25.3 pg (27.0-31.2); Mean Corpuscular Volume 80.1 fl (81-99); Mean Platelet Volume 7.9 fl (7.4-10.4); Monocytes # 0.4 K/mm3 (0.1-1.0); Monocytes % 4.2 % (1.7-9.3); Neutrophils # 4.9 K/mm3 (1.8-7.8); Neutrophils % 50.8 % (37.0-80.0); Platelet Count 368 K/mm3 (142-424); Red Blood Count 4.69 M/mm3 (4.20-5.40); White Blood Count 9.6 K/mm3 (4.8-10.8)
[2023-01-01 18:11] LABS: Alanine Aminotransferase 18 U/L (12-78); Albumin Level 4.2 g/dl (3.5-5.0); Albumin/Globulin Ratio 1.3 (1.1-1.8); Alkaline Phosphatase 77 U/L (38-126); Anion Gap 14.2 mEq/L (5-15); Aspartate Amino Transferase 24 U/L (14-36); Bilirubin,Total 0.2 mg/dl (0.2-1.3); Blood Urea Nitrogen 13 mg/dl (7-17); Calcium 8.9 mg/dl (8.4-10.2); Carbon Dioxide 24 mmol/L (22.0-30.0); Chloride 107 mmol/L (98-107); Estimated Glomerular Filt Rate 82 ml/min (>60); GFR (African American) 99 ML/MIN (>60); Globulin 3.2 g/dL (1.3-3.2); Glucose 73 mg/dl (74-100); Potassium 4.2 mmoL/L (3.5-5.1); Sodium 141 mmol/L (136-145); Total Protein,Serum 7.4 g/dl (6.3-8.2)
[2023-01-01 18:34] LABS: HCG,Quantitative < 2 mIU/ml (0-5.42)
== END ==
PROVIDERS: PCP Nurse Practitioner Family; Visit Provider Obstetrics & Gynecology
DX: D06.9 Carcinoma in situ of cervix, unspecified (principal)
CPT/HCPCS: 36415; 80053; 84702; 85025

== ENCOUNTER 2023-01-09 06:12 | Day surgery (SDC) | payer OTHER, SELFPAY ==
[2023-01-07 10:44] VITALS: BMI 27.4
[2023-01-09] VITALS (12 sets, daily range): BP systolic 119–159; BP diastolic 67–101; PULSE 60–103; RESP 12–22; TEMP 36.2–43; O2SAT 97–100
[2023-01-09 06:25] LABS: Urine Pregnancy, HCG Qual. Negative (Negative)
--- NOTE | 2023-01-09 06:50 | EXP.ANES.CKL ---
[facility] Disclaimer: The information contained in this section may have been updated after the patient was seen, as this information can be updated by other users. Medical History Anxiety Cervical motion tenderness Dyspareunia History of abnormal cervical Pap smear Hypokalemia Hypothyroidism Menorrhagia Severe dysplasia of cervix (TASH III) Surgical History H/O thyroidectomy History of bilateral salpingectomy History of delivery x2 History of placement of ear tubes History of surgery on lower extremity cyst drainage Family History Father Coronary artery disease Other Diabetes Thyroid disorder Social History Smoking Status: Never smoker alcohol intake: never substance use type: denies use current occupational status: unemployed Travel in the last 8 weeks: None household members: significant other, family and children housing: house current occupational exposures/hazards: No [facility] Anesthesia Checklist Patient Identification Patient Identification: Arm Band and Family Structural Data Admitted From: Home Planned Operative Procedure/s: LEEP Consent for Planned Operative Procedure(s) Verified: Yes Verified Documents: Surgical Consent and History and Physical NPO Status Verified Time NPO: 00:00 Additional verifications Patient : No Anesthesia Reactions: No Hx Blood Transfusions: No Blood Transfusion Reaction: No Cephalosporin Allergy: No Previous Colonoscopy: No Airway Assessment Mallampati Score:: Class II C-Spine Mobility Assessed: Yes TMJ Mobility Assessed: Yes Dentition: Good Dentition Neurological Assessment Level of Consciousness: Awake, Alert, Appropriate and Follows Commands Hx Seizures: No Numbness or tingling in extremities: No Anesthesia Plan Anesthesia Risk discussed: Yes ASA Class: II (Hystory of Total Thyroidectomy.) Anesthesia Type: General
--- NOTE | 2023-01-09 08:02 | P.OP_ITS ---
Date of procedure: 01/09/23 Pre-op Diagnosis:: 1. TASH III, severe dysplasia Post-op Diagnosis:: 1. TASH III, severe dysplasia Procedure performed:: Loop electrosurgical excision procedure Surgeon:: Azalia Tsang DO Hardwood Sawyer(s):: N/A REGULATORY COMPLIANCE DIRECTOR:: Other Anesthesia: GETA Estimated blood loss (mL): 2 Clinical Note:: Ms Karis Aguayo is a very pleasant 32 yo P2004 who presents to [facility] for scheduled procedure. Colposcopy 11/20/22 demonstrated biopsy at 11 o'clock with TASH III and biospy at 1 o'clock TASH I. Operative findings:: 1. Uterus normal size and shape, midline, anteverted. No adnexal masses palpated 2. Cervix appeared grossly normal Operative note:: Risks, benefits and alternatives were discussed with the patient. Risks include but are not limited to bleeding, infection, and VTE. Patient voiced understanding and agreed to proceed. She was wheeled back to the operating room and placed under general anesthesia without difficulty. She was placed in dorsal lithotomy position and prepped and draped in the normal sterile fashion. Straight catheter was used to drain the bladder. An insulated speculum was inserted into the vagina. Insulated single tooth tenaculum was placed on anterior lip of the cervix. Small size loop was selected to excise portion of posterior cervix. Second pass with small loop was used to excise anterior portion of ectocervix. Small loop was used to obtain a top hat for excision of endocervix. The bed of excised cervical tissue was cauterized with ball Bovi cautery. Hemostasis was noted. all instruments were removed from the vagina. Tenaculum site was noted to be hemostatic. Patient was awaken from anesthesia without difficulty. She was transported to recovery room in stable condition. Patient will be discharged home when awake and ambulating. She was also given instructions to follow-up in the office in 2 weeks. Condition: stable Disposition: same day Specimens:: 1. Posterior ectocervix 2. Anterior ectocervix 3. Endocervix Complications:: None
--- NOTE | 2023-01-09 08:09 | P.PNANES_ITS ---
[facility] Anesthesia Record Part I Anesthesia Record I Intake, IV Amount: 550 Hydration: Adequate Estimated blood loss (mL): 5 Urine output (mL): 0 Blood Products used (#): none Blood Pressure: 159/101 SaO2: 100 Pulse Rate: 83 Airway Patency: Patent Respiratory Rate: 12 Temperature: 97.7 F Patient is:: Drowsy and Stable Stable to PACU at:: 08:00
--- NOTE | 2023-01-09 09:19 | EXP.ANES.I ---
[facility] Anesthesia Record Part I Anesthesia Record I Intake, IV Amount: 600 Hydration: Adequate Estimated blood loss (mL): 5 Urine output (mL): 0 Blood Products used (#): none Blood Pressure: 121/73 SaO2: 100 Pulse Rate: 60 Airway Patency: Patent Respiratory Rate: 22 Temperature: 97.3 F Patient is:: Drowsy and Stable Stable to PACU at:: 09:10
--- NOTE | 2023-01-10 11:38 | P.PNANES_ITS ---
[facility] Anesthesia Record Part II Anesthesia Record Part II Discharge Time: 08:30 Destination: Surgical Day Care (OP Surgery) PACU nurse assessment reviewed?: Yes Patient Condition:: Good Anesthesia Complications:: None Swallowing reflex intact?: Yes Airway Patency: Patent Cyanosis?: No Blood Pressure: 122/76 SaO2: 98 Respiratory Rate: 18 Pulse Rate: 101 Temperature: 97.1 F Mental Status: Alert & Oriented Pain level:: 0 Nausea and/or vomitting:: None Intake, IV Amount: 0 Hydration: Adequate
[2023-01-10 11:39] VITALS: BP 122/76; PULSE 101; RESP 18; TEMP 36.2; O2SAT 98
== END 2023-01-09 09:08 | disposition home or self-care (01) ==
PROVIDERS: PCP Nurse Practitioner Family; Visit Provider Obstetrics & Gynecology
PROC: (CPT 57522; principal; 2023-01-09 07:30)
DX: D06.9 Carcinoma in situ of cervix, unspecified (principal); N72 Inflammatory disease of cervix uteri
CPT/HCPCS: 57522; 81025; J2405